=== PATIENT | female | born 1945 | race Two or more races ===

== ENCOUNTER 2018-12-04 05:35 | Day surgery (SDC) | payer OTHER ==
[~2018-12-04 05:35] MED LIST: 8 HOUR PAIN RE650 M1 PO; ASA81 MG PO; B-121000 MC1 PO; BACLOFEN10 MG PO; COQ-10100 MG PO; CYMBALTA60 MG PO; FOLIC ACID1 MG PO; GABAPENTIN100 MG PO; HYTRIN; HYZAAR 100-251 EACH PO; MOBIC15 MG PO; PRILOSEC10 MG PO; TOPROL XL100 M1 PO; VITAMIN D310000 UNIT PO
[2018-12-04] MEDS ORDERED: PERCOCET 5-3251 EACH PO (08:48)
== END 2018-12-04 11:32 | disposition home or self-care (01) ==
LOC: CIR.AMB 05:35
DX: E04.1 Nontoxic single thyroid nodule (principal)